=== PATIENT | female | born 1940 | race Caucasian/White ===

== ENCOUNTER 2018-07-31 10:11 | Emergency (ER) | payer MEDICARE, OTHER ==
[2018-07-31] MEDS: traMADol 50 MG TAB PO (10:42)
[2018-07-31] MEDS ORDERED: ONDANSETRON (ODT) 4 MG TAB ODT (12:09)
[2018-07-31] MEDS: KETOROLAC 30 MG INJ IM (12:12)
[2018-07-31] MEDS: ONDANSETRON (ODT) 4 MG TAB ODT (12:15)
== END 2018-07-31 12:40 | disposition home or self-care (01) ==
LOC: FTE 10:11
DX: S42.211A Unspecified displaced fracture of surgical neck of right humerus, initial encounter for closed fracture (principal); I10 Essential (primary) hypertension; W01.0XXA Fall on same level from slipping, tripping and stumbling without subsequent striking against object, initial encounter; Y92.9 Unspecified place or not applicable; Z85.3 Personal history of malignant neoplasm of breast
CPT/HCPCS: 29105; 70450; 72125; 73060-RT; 73564; 96372; 99285-25